=== PATIENT | female | born 1990 ===

== ENCOUNTER 2016-12-15 16:28 | Emergency (ER) | payer SELFPAY ==
[~2016-12-15] VITALS: Ht 154.9 cm; Wt 90.3 kg
[2016-12-15 16:30] VITALS: BP 117/67
[2016-12-15] MEDS ORDERED: ZITHTAB PO (18:21)
[2016-12-15] MEDS ORDERED: AZITHROMYCIN 250 MG TAB PO ONE (18:30)
== END 2016-12-15 20:40 | disposition home or self-care (01) ==
LOC: M ED 16:28
DX: J02.9 Acute pharyngitis, unspecified (principal); Z88.0 Allergy status to penicillin; Z88.8 Allergy status to other drugs, medicaments and biological substances; Z88.1 Allergy status to other antibiotic agents